=== PATIENT | female | born 1955 | race Caucasian/White ===

== ENCOUNTER → 2016-09-12 | Outpatient (CLI) | payer BC ==
[~2016-09-12] MED LIST: AMOX500C3 PO; ATOR-24 PO; CALC600T9 PO; DICL1GEL12 TOP; HYDR25TA4 PO; NITR1CAP16 PO; NITR1CAP32 PO; OMEP20TA PO; PHEN-775 PO; TURM1CAP4 PO
== END | disposition home or self-care (01) ==
LOC: C.LABSPEC 13:51
PROVIDERS: ATTEND Physician Assistant
DX: Z01.419 Encounter for gynecological examination (general) (routine) without abnormal findings (principal)

== ENCOUNTER → 2016-09-20 | Day surgery (SDC) | payer BC ==
[2016-09-12 14:27] VITALS: Ht 161.3 cm; Wt 69.1 kg
[~2016-09-20] VITALS: Ht 161.3 cm; Wt 69.1 kg
[~2016-09-20] MED LIST changes: +LIDOCAINE HCL 2% 2 ML VIAL (20MG/ML) ONE; +MIDAZOLAM HCL 1 MG/ML 2ML VIAL ONE; +ONDANSETRON INJ 2 MG/ML 2 ML VIAL ONE; +PROPOFOL IV EMULSION 10 MG/ML 20 ML VIAL IV ONE; +SODIUM CHLORIDE 0.9% 500ML 500 ML IV ONE
[2016-09-20 10:17] VITALS: TEMP 36.5
--- NOTE | 2016-09-20 10:38 | Endo History and Physical ---
History & Physical Date of Service: Sep 20, 2016. Chief Complaint: screening Referring Physician: Dr. Jerome Mendes History of Present Illness 60 yo CF who presents for screening colonoscopy. Past Surgical History Hx Cardiac Surgery: No Hx Internal Defibrillator: No Hx Pacemaker: No Hx Abdominal Surgery: No Hx of Implantable Prosthesis: No Hx Post-Op Nausea and Vomiting: No Hx Cancer Surgery: No Hx Thoracic Surgery: No Hx Orthopedic: Yes (LT TSA, RT/LT KNEE SURGERY) Hx Urinary Tract Surgery: No Family History Polyp Social History Smoking Status: Never Smoker Hx Substance Use: No Hx Alcohol Use: Yes (OCCASIONAL) Allergies Coded Allergies: No Known Allergies (Verified , `, 09/12/16) Current Medications Reported Home Medications Medications Dose Route/Sig Max Daily Dose Days Date Category Amoxil (Amoxicillin) 500 Mg Cap 4 Cap PO UD PRN 09/12/16 Reported Voltaren 1% Top Gel (Diclofenac Sodium (Topical)) 1 % Gel 1 Dose TOP BID 09/12/16 Reported Turmeric (Turmeric (Curcuma Longa)) 500 Mg Cap 1 Cap PO HS 09/12/16 Reported Omeprazole 20 Mg Tab 1 Tab PO QPM 09/12/16 Reported Calcium + D (Calcium Carbonate-Vitamin D) 1 Tab Tab 1 Tab PO BID 09/12/16 Reported Hctz (Hydrochlorothiazide) 25 Mg Tab 25 Mg PO QAM 06/17/13 Reported Lipitor (Atorvastatin Calcium) 40 Mg Tab 40 Mg PO QAM 09/10/12 Reported Vital Signs Weight (Kilograms): 69.09 Height (Feet): 5 Height (Inches): 3.5 Date Time Temp Pulse Resp B/P Pulse Ox O2 Delivery O2 Flow Rate FiO2 09/20/16 10:17 36.5 68 18 134/62 97 Room Air Physical Exam General Appearance: WD/WN, no apparent distress Respiratory/Chest: Auscultation: breath sounds normal Cardiovascular: Heart Auscultation: RRR Abdomen: Bowel Sounds: normal Inspection & Palpation: soft, non-distended, no tenderness, guarding & rebound Assessment and Plan Assessment: 60 yo CF who presents for screening colonoscopy. Plan: Proceed with colonoscopy.
--- NOTE | 2016-09-20 11:09 | Discharge Instructions ---
Endoscopy Patient Instructions Date / Procedure(s) Performed Sep 20, 2016. Colonoscopy Allergy Information Coded Allergies: No Known Allergies (Verified , `, 09/12/16) Discharge Date / Findings Sep 20, 2016. Internal hemorrhoids Medication Instructions OK to resume all medications today as prescribed. Reported Home Medications Medications Dose Route/Sig Max Daily Dose Days Date Category Amoxil (Amoxicillin) 500 Mg Cap 4 Cap PO UD PRN 09/12/16 Reported Voltaren 1% Top Gel (Diclofenac Sodium (Topical)) 1 % Gel 1 Dose TOP BID 09/12/16 Reported Turmeric (Turmeric (Curcuma Longa)) 500 Mg Cap 1 Cap PO HS 09/12/16 Reported Omeprazole 20 Mg Tab 1 Tab PO QPM 09/12/16 Reported Calcium + D (Calcium Carbonate-Vitamin D) 1 Tab Tab 1 Tab PO BID 09/12/16 Reported Hctz (Hydrochlorothiazide) 25 Mg Tab 25 Mg PO QAM 06/17/13 Reported Lipitor (Atorvastatin Calcium) 40 Mg Tab 40 Mg PO QAM 09/10/12 Reported Provider Instructions Activity Restrictions - No exercising or heavy lifting for 24 hours. - Do not drink alcohol the day of the procedure. - Do not drive a car or operate machinery until the day after the procedure. - Do not make any important decisions or sign important papers in 24 hours after the procedure. Following Day: - Return to full activity which may include returning to work/school. Diet Start your diet with liquids and light foods (jello, soup, juice, toast). Then eat your usual diet if not nauseated. Treatment For Common After Affects For mild abdominal pain, bloating, or excessive gas: - Rest - Eat lightly - Lie on right side Follow-Up Information Follow-up with Dr. Jerome Mendes as scheduled Anesthesia Information What You Should Know You have had a procedure that required some medicine to reduce anxiety and discomfort. This treatment is called moderate sedation. After receiving the treatment, you may be sleepy, but you will be able to breathe on your own. The effects of the treatment may last for several hours. Follow these instructions along with Activity/Diet recommendations noted above: * Do NOT do anything where dizziness or clumsiness would be dangerous. * Rest quietly at home today, then you can be up and about tomorrow. * Have a responsible person stay with you the rest of today. * You may have had an I.V. today. If so, you may take the dressing off later today. Recommendations Call your doctor if: * Trouble breathing * Continuous vomiting for more than 24 hours * Temperature above 101 degrees * Severe abdominal pain or bloating * Pain not relieved by pain medicine ordered * There is increased drainage or redness from any incision * A large amount of rectal bleeding greater than 2-3 tablespoons. (If you had a polyp/s removed or have hemorrhoids, a small amount of blood - from the rectum is to be expected.) * You have any unanswered questions or concerns. IN THE EVENT OF A SERIOUS EMERGENCY, GO TO THE NEAREST EMERGENCY ROOM Your discharge instructions were prepared by provider Roscoe Bradley. Patient Instructions Signature Page Marlene Null Patient (or Guardian) Signature/Date: I have read and understand the instructions given to me by my caregivers. Caregiver/RN/Doctor Signature/Date: The above-named patient and/or guardian has received patient instructions on this date. + Original Patient Signature Page (only) stays with chart. Please make copy for patient.
--- NOTE | 2016-09-20 11:13 | Anesthesiology Progress Note ---
Anesthesia Post Op Note Date & Time Sep 20, 2016 at 11:12 Vital Signs Pain Intensity: 0 Vital Signs Past 12 Hours Date Time Temp Pulse Resp B/P Pulse Ox O2 Delivery O2 Flow Rate FiO2 09/20/16 11:11 62 18 98/61 100 Room Air 09/20/16 11:00 64 18 93/51 98 Room Air 09/20/16 10:17 36.5 68 18 134/62 97 Room Air Notes Mental Status: alert / awake / arousable, participated in evaluation Pt Amnestic to Procedure: Yes Nausea / Vomiting: adequately controlled Pain: adequately controlled Airway Patency, RR, SpO2: stable & adequate BP & HR: stable & adequate Hydration State: stable & adequate Anesthetic Complications: no major complications apparent Pt doing well.
--- NOTE | 2016-09-20 11:13 | GI REPORT ---
Procedure Date: 09/20/2016 10:19 AM Procedure: Colonoscopy Indications: Screening for colorectal malignant neoplasm Medicines: Monitored Anesthesia Care Complications: No immediate complications. Estimated Blood Loss: Estimated blood loss: none. Procedure: Pre-Anesthesia Assessment: - Prior to the procedure, a History and Physical was performed, and patient medications and allergies were reviewed. The patient's tolerance of previous anesthesia was also reviewed. The risks and benefits of the procedure and the sedation options and risks were discussed with the patient. All questions were answered, and informed consent was obtained. Prior Anticoagulants: The patient has taken no previous anticoagulant or antiplatelet agents. ASA Grade Assessment: II - A patient with mild systemic disease. After reviewing the risks and benefits, the patient was deemed in satisfactory condition to undergo the procedure. After I obtained informed consent, the scope was passed under direct vision. Throughout the procedure, the patient's blood pressure, pulse, and oxygen saturations were monitored continuously. The scope was introduced through the anus and advanced to the cecum, identified by appendiceal orifice and ileocecal valve. The colonoscopy was performed without difficulty. The patient tolerated the procedure well. The quality of the bowel preparation was good. The ileocecal valve, appendiceal orifice, and rectum were photographed. Findings: Non-bleeding internal hemorrhoids were found during retroflexion. The hemorrhoids were small. The exam was otherwise without abnormality. Impression: - Non-bleeding internal hemorrhoids. - The examination was otherwise normal. - No specimens collected. Recommendation: - Resume previous diet. - Continue present medications. - Repeat colonoscopy in 10 years for surveillance. - Return to primary care physician as previously scheduled. Roscoe Bradley, DO 09/20/2016 11:12:46 AM This report has been signed electronically. Note Initiated On: 09/20/2016 10:19 AM I attest to the content of the Intraoperative Record and orders documented therein, exceptions below
[2016-09-20 11:27] VITALS: BP 103/53; PULSE 60; O2SAT 100
== END | disposition home or self-care (01) ==
LOC: C.GI 10:02
PROVIDERS: ATTEND Internal Medicine
DX: Z12.11 Encounter for screening for malignant neoplasm of colon (principal); K64.8 Other hemorrhoids; Z98.890 Other specified postprocedural states

== ENCOUNTER → 2016-09-25 | Outpatient (CLI) | payer BC ==
[~2016-09-25] MED LIST changes: -LIDOCAINE HCL 2% 2 ML VIAL (20MG/ML) ONE; -MIDAZOLAM HCL 1 MG/ML 2ML VIAL ONE; -ONDANSETRON INJ 2 MG/ML 2 ML VIAL ONE; -PROPOFOL IV EMULSION 10 MG/ML 20 ML VIAL IV ONE; -SODIUM CHLORIDE 0.9% 500ML 500 ML IV ONE
--- NOTE | 2016-09-25 13:56 | MAMMOGRAPHY REPORT ---
BILATERAL DIGITAL SCREENING MAMMOGRAM TOMOSYNTHESIS WITH CAD: 09/25/2016 CLINICAL HISTORY: Routine screening. Patient has no complaints. TECHNIQUE: Breast tomosynthesis in addition to standard 2D mammography was performed. Current study was also evaluated with a Computer Aided Detection (CAD) system. COMPARISON: Comparison is made to exams dated: 01/02/2011 mammogram, 12/27/2009 mammogram - [facility], 12/06/2008, 10/13/2006, and 06/13/2003 mammogram - [facility]. BREAST COMPOSITION: There are scattered areas of fibroglandular density in both breasts. FINDINGS: No suspicious masses, calcifications, or areas of architectural distortion are noted in e ither breast. There has been no significant interval change compared to prior exams. IMPRESSION: ACR BI-RADS CATEGORY 1: NEGATIVE There is no mammographic evidence of malignancy. A 1 year screening mammogram is recommended. The p atient will receive written notification of the results. Approximately 10% of breast cancers are not detected with mammography. A negative mammographic repor t should not delay biopsy if a clinically suggestive mass is present. Radha Nathan M.D. ah/:09/25/2016 13:41:09 [employer]r: Flores PACHECO(Mattie)(M), [facility] letter sent: Normal 1/2 BI-RADS Code: ACR BI-RADS Category 1: Negative
== END | disposition home or self-care (01) ==
LOC: C.MAMM 09:08
PROVIDERS: ATTEND Internal Medicine
DX: Z12.31 Encounter for screening mammogram for malignant neoplasm of breast (principal)

== ENCOUNTER → 2016-10-01 | Day surgery (SDC) | payer BC ==
[2016-09-25 13:22] VITALS: Ht 161.3 cm; Wt 69.1 kg
[~2016-10-01] VITALS: Ht 161.3 cm; Wt 69.1 kg
[~2016-10-01] MED LIST changes: +LIDOCAINE HCL 2% 2 ML VIAL (20MG/ML) ONE; +MIDAZOLAM HCL 1 MG/ML 2ML VIAL ONE; +ONDANSETRON INJ 2 MG/ML 2 ML VIAL ONE; +PROPOFOL IV EMULSION 10 MG/ML 20 ML VIAL IV ONE; +SODIUM CHLORIDE 0.9% 500ML 500 ML IV ONE
[2016-10-01 11:07] VITALS: TEMP 36.5
--- NOTE | 2016-10-01 11:32 | Endo History and Physical ---
History & Physical Date of Service: Oct 01, 2016. Chief Complaint: epigastric pain Referring Physician: Dr. Jerome Mendes History of Present Illness 60 yo CF who presents for EGD secondary to epigastric pain. Past Surgical History Hx Cardiac Surgery: No Hx Internal Defibrillator: No Hx Pacemaker: No Hx Abdominal Surgery: No Hx of Implantable Prosthesis: No Hx Post-Op Nausea and Vomiting: No Hx Cancer Surgery: No Hx Thoracic Surgery: No Hx Orthopedic: Yes (LT TSA, RT/LEFT KNEE SX) Hx Urinary Tract Surgery: No Family History Polyp Social History Smoking Status: Never Smoker Hx Substance Use: No Hx Alcohol Use: Yes (OCCASIONALLY) Allergies Coded Allergies: No Known Allergies (Verified , `, 09/25/16) Current Medications Reported Home Medications Medications Dose Route/Sig Max Daily Dose Days Date Category Macrodantin (Nitrofurantoin Macrocrystals) 100 Mg Cap 1 Cap PO BID 10 10/01/16 Reported Amoxil (Amoxicillin) 500 Mg Cap 4 Cap PO UD PRN 09/12/16 Reported Voltaren 1% Top Gel (Diclofenac Sodium (Topical)) 1 % Gel 1 Dose TOP BID 09/12/16 Reported Turmeric (Turmeric (Curcuma Longa)) 500 Mg Cap 1 Cap PO HS 09/12/16 Reported Omeprazole 20 Mg Tab 1 Tab PO QPM 09/12/16 Reported Calcium + D (Calcium Carbonate-Vitamin D) 1 Tab Tab 1 Tab PO BID 09/12/16 Reported Hctz (Hydrochlorothiazide) 25 Mg Tab 25 Mg PO QAM 06/17/13 Reported Lipitor (Atorvastatin Calcium) 40 Mg Tab 40 Mg PO QAM 09/10/12 Reported Vital Signs Weight (Kilograms): 69.09 Height (Feet): 5 Height (Inches): 3.5 Date Time Temp Pulse Resp B/P Pulse Ox O2 Delivery O2 Flow Rate FiO2 10/01/16 11:07 36.5 74 20 128/68 100 Room Air Physical Exam General Appearance: WD/WN, no apparent distress Respiratory/Chest: Auscultation: breath sounds normal Cardiovascular: Heart Auscultation: RRR Abdomen: Bowel Sounds: normal Inspection & Palpation: soft, non-distended, no tenderness, guarding & rebound Assessment and Plan Assessment: 60 yo CF who presents for EGD secondary to epigastric pain. Plan: Proceed with EGD.
--- NOTE | 2016-10-01 12:15 | GI REPORT ---
Procedure Date: 10/01/2016 11:38 AM Procedure: Upper GI endoscopy Indications: Epigastric abdominal pain Medicines: Monitored Anesthesia Care Complications: No immediate complications. Estimated Blood Loss: Estimated blood loss: none. Procedure: Pre-Anesthesia Assessment: - Prior to the procedure, a History and Physical was performed, and patient medications and allergies were reviewed. The patient's tolerance of previous anesthesia was also reviewed. The risks and benefits of the procedure and the sedation options and risks were discussed with the patient. All questions were answered, and informed consent was obtained. Prior Anticoagulants: The patient has taken no previous anticoagulant or antiplatelet agents. ASA Grade Assessment: II - A patient with mild systemic disease. After reviewing the risks and benefits, the patient was deemed in satisfactory condition to undergo the procedure. After obtaining informed consent, the endoscope was passed under direct vision. Throughout the procedure, the patient's blood pressure, pulse, and oxygen saturations were monitored continuously. The scope was introduced through the mouth, and advanced to the second part of duodenum. The upper GI endoscopy was accomplished without difficulty. The patient tolerated the procedure well. Findings: The examined esophagus was normal. Localized mild inflammation characterized by erythema was found in the gastric antrum. Biopsies were taken with a cold forceps for histology. The examined duodenum was normal. Impression: - Normal esophagus. - Gastritis. Biopsied. - Normal examined duodenum. Recommendation: - Resume previous diet. - Continue present medications. - Await pathology results. - Return to GI office as previously scheduled. Roscoe Bradley DO 10/01/2016 12:13:57 PM This report has been signed electronically. Note Initiated On: 10/01/2016 11:38 AM I attest to the content of the Intraoperative Record and orders documented therein, exceptions below
--- NOTE | 2016-10-01 12:18 | Discharge Instructions ---
Endoscopy Patient Instructions Date / Procedure(s) Performed Oct 01, 2016. EGD Allergy Information Coded Allergies: No Known Allergies (Verified , `, 09/25/16) Discharge Date / Findings Oct 01, 2016. Gastritis s/p biopsies Medication Instructions OK to resume all medications today as prescribed Reported Home Medications Medications Dose Route/Sig Max Daily Dose Days Date Category Macrodantin (Nitrofurantoin Macrocrystals) 100 Mg Cap 1 Cap PO BID 10 10/01/16 Reported Amoxil (Amoxicillin) 500 Mg Cap 4 Cap PO UD PRN 09/12/16 Reported Voltaren 1% Top Gel (Diclofenac Sodium (Topical)) 1 % Gel 1 Dose TOP BID 09/12/16 Reported Turmeric (Turmeric (Curcuma Longa)) 500 Mg Cap 1 Cap PO HS 09/12/16 Reported Omeprazole 20 Mg Tab 1 Tab PO BID 09/12/16 Reported Calcium + D (Calcium Carbonate-Vitamin D) 1 Tab Tab 1 Tab PO BID 09/12/16 Reported Hctz (Hydrochlorothiazide) 25 Mg Tab 25 Mg PO QAM 06/17/13 Reported Lipitor (Atorvastatin Calcium) 40 Mg Tab 40 Mg PO QAM 09/10/12 Reported Provider Instructions Activity Restrictions - No exercising or heavy lifting for 24 hours. - Do not drink alcohol the day of the procedure. - Do not drive a car or operate machinery until the day after the procedure. - Do not make any important decisions or sign important papers in 24 hours after the procedure. Following Day: - Return to full activity which may include returning to work/school. Diet Start your diet with liquids and light foods (jello, soup, juice, toast). Then eat your usual diet if not nauseated. Treatment For Common After Affects For mild abdominal pain, bloating, or excessive gas: - Rest - Eat lightly - Lie on right side Follow-Up Information Follow-up with Dr. Jerome Mendes as scheduled Anesthesia Information What You Should Know You have had a procedure that required some medicine to reduce anxiety and discomfort. This treatment is called moderate sedation. After receiving the treatment, you may be sleepy, but you will be able to breathe on your own. The effects of the treatment may last for several hours. Follow these instructions along with Activity/Diet recommendations noted above: * Do NOT do anything where dizziness or clumsiness would be dangerous. * Rest quietly at home today, then you can be up and about tomorrow. * Have a responsible person stay with you the rest of today. * You may have had an I.V. today. If so, you may take the dressing off later today. Recommendations Call your doctor if: * Trouble breathing * Continuous vomiting for more than 24 hours * Temperature above 101 degrees * Severe abdominal pain or bloating * Pain not relieved by pain medicine ordered * There is increased drainage or redness from any incision * A large amount of rectal bleeding greater than 2-3 tablespoons. (If you had a polyp/s removed or have hemorrhoids, a small amount of blood - from the rectum is to be expected.) * You have any unanswered questions or concerns. IN THE EVENT OF A SERIOUS EMERGENCY, GO TO THE NEAREST EMERGENCY ROOM Your discharge instructions were prepared by provider Roscoe Bradley. Patient Instructions Signature Page Marlene Null Patient (or Guardian) Signature/Date: I have read and understand the instructions given to me by my caregivers. Caregiver/RN/Doctor Signature/Date: The above-named patient and/or guardian has received patient instructions on this date. + Original Patient Signature Page (only) stays with chart. Please make copy for patient.
--- NOTE | 2016-10-01 12:27 | Anesthesiology Progress Note ---
Anesthesia Post Op Note Date & Time Oct 01, 2016 at 12:26 Vital Signs Pain Intensity: 0 Vital Signs Past 12 Hours Date Time Temp Pulse Resp B/P Pulse Ox O2 Delivery O2 Flow Rate FiO2 10/01/16 12:14 70 16 101/61 96 Room Air 10/01/16 11:07 36.5 74 20 128/68 100 Room Air Notes Mental Status: alert / awake / arousable, participated in evaluation Pt Amnestic to Procedure: Yes Nausea / Vomiting: adequately controlled Pain: adequately controlled Airway Patency, RR, SpO2: stable & adequate BP & HR: stable & adequate Hydration State: stable & adequate Anesthetic Complications: no major complications apparent Pt doing well.
[2016-10-01 12:44] VITALS: BP 106/63; PULSE 61; O2SAT 97
== END | disposition home or self-care (01) ==
LOC: C.GI 10:52
PROVIDERS: ATTEND Internal Medicine
DX: R10.13 Epigastric pain (principal); K29.60 Other gastritis without bleeding

== ENCOUNTER 2017-01-08 02:21 | Emergency (ER) | payer BC ==
[~2017-01-08] VITALS: Ht 162.6 cm; Wt 68.6 kg
[~2017-01-08 02:21] MED LIST changes: -LIDOCAINE HCL 2% 2 ML VIAL (20MG/ML) ONE; -MIDAZOLAM HCL 1 MG/ML 2ML VIAL ONE; -NITR1CAP16 PO; -ONDANSETRON INJ 2 MG/ML 2 ML VIAL ONE; -PHEN-775 PO; -PROPOFOL IV EMULSION 10 MG/ML 20 ML VIAL IV ONE; -SODIUM CHLORIDE 0.9% 500ML 500 ML IV ONE
[2017-01-08 02:23] VITALS: Ht 162.6 cm; Wt 68.6 kg
--- NOTE | 2017-01-08 03:00 | EMERGENCY ROOM VISIT NOTE ---
History Report prepared by Delbert: Caitlin Pineda Under the Supervision of: Dr. Alexus Sanchez D.O. First contact with patient: 02:36 Chief Complaint: URINARY SYMPTOMS Stated Complaint: UTI History of Present Illness The patient is a 61 year old female who presents to the Emergency Room with complaints of an episode of urinary symptoms starting 5 hours ago. The patient states that she has a history of frequent UTIs and this feels similar to previous ones. The patient states that she developed the frequent urination with spasms when she urinates. The patient denies fevers, chills, nausea, vomiting, diarrhea, and abdominal pain. She notes that she is allergic to Bactrim. The patient currently rates her pain as a 5/10 in severity. Source of History: patient Onset: five hours ago Position: other (global) Symptom Intensity: 5/10 Quality: other (like previous UTIs) Timing: other (episode) Associated Symptoms: + urinary symptoms, No fevers, No chills, No nausea, No vomiting, No abdominal pain, No diarrhea Review of Systems See HPI for pertinent positives & negatives. A total of 10 systems reviewed and were otherwise negative. Past Medical & Surgical Medical Problems: (1) DJD of shoulder (2) History of left shoulder replacement (3) Hypertension Nos (4) Pure Hypercholesterolem Family History Gallbladder disease Lung disease Social History Smoking Status: Never Smoker Smokeless Tobacco Use: No Alcohol Use: occasionally Marital Status: Housing Status: lives with significant other Occupation Status: employed Current/Historical Medications Scheduled Atorvastatin (Lipitor), 40 MG PO QAM Calcium Carbonate-Vitamin D (Calcium + D), 1 TAB PO BID Hydrochlorothiazide (Hctz), 25 MG PO QAM Nitrofurantoin Monohyd Macro (Macrobid), 100 MG PO BID Omeprazole (Omeprazole), 1 TAB PO BID Phenazopyridine Hcl (Pyridium), 1 TAB PO TID Turmeric (Curcuma [place]a) (Turmeric), 1 CAP PO HS Scheduled PRN Amoxicillin (Amoxil), 4 CAP PO UD PRN for DENTAL PROCEDURE Allergies Coded Allergies: Sulfamethoxazole w/Trimethoprim (Verified Allergy, Unknown, NUMBNESS, ) Physical Exam Vital Signs Date Time Temp Pulse Resp B/P (MAP) Pulse Ox O2 Delivery O2 Flow Rate FiO2 01/08/17 04:21 36.4 65 18 134/74 98 8/2/17 03:57 65 18 134/74 98 Room Air 01/08/17 02:23 36.4 63 18 168/74 100 Room Air Physical Exam HEENT: Head - normocephalic and atraumatic Pupils are equal, round, and reactive to light. Extraocular eye muscles are intact, and sclera are anicteric. Nose - moist nasal mucosa without discharge. Mouth - moist buccal mucosa. Oropharynx is nonerythematous and there is no tonsillar exudate or edema noted. Neck: Supple; no JVD, nuchal rigidity, cervical lymphadenopathy. Heart: Regular rate and rhythm. There is a normal S1 and S2 with no murmurs, clicks, or gallops appreciated. Lungs: Clear to auscultation bilaterally with no wheezes, rales, or rhonchi. Abdomen: Soft, completely nontender, nondistended, with good bowel sounds. There are no palpable pulsatile masses or hepatosplenomegaly. There is no guarding, rigidity, or rebound noted. Extremities: No evidence of cyanosis, clubbing, or edema. There are easily palpable peripheral pulses. Skin: warm and dry with good turgor and no rashes. Medical Decision & Procedures Laboratory Results Test 01/08/17 00:00 Urine Color YELLOW Urine Appearance CLOUDY (CLEAR) Urine pH 7.0 (4.5-7.5) Urine Specific [place] 1.012 (1.000-1.030) Urine Protein TRACE (NEG) Urine Glucose (UA) NEG (NEG) Urine Ketones NEG (NEG) Urine Occult Blood 3+ (NEG) Urine Nitrite NEG (NEG) Urine Bilirubin NEG (NEG) Urine Urobilinogen NEG (NEG) Urine Leukocyte Esterase LARGE (NEG) Urine WBC (Auto) >30 /hpf (0-5) Urine RBC (Auto) 10-30 /hpf (0-4) Urine Hyaline Casts (Auto) 1-5 /lpf (0-5) Urine Epithelial Cells (Auto) 5-10 /lpf (0-5) Urine Bacteria (Auto) NEG (NEG) Laboratory results per my review. Medications Administered Medications (Trade) Dose Ordered Sig/Madhu Route Start Time Stop Time Status Last Admin Dose Admin Phenazopyridine HCl (Pyridium Tab) 200 mg NOW STAT PO 01/08/17 03:14 01/08/17 03:15 DC 01/08/17 03:20 200 MG Nitrofurantoin Macrocrystals (Macrobid Cap) 100 mg ONE ONCE PO 01/08/17 04:15 01/08/17 04:16 DC 01/08/17 04:14 100 MG Procedure 0314: Ordered Pyridium Tab 200 mg PO. 0415: Ordered Macrobid Cap 100 mg PO. ED Course 0246: Past medical records reviewed. The patient was evaluated in room B10. A complete history and physical exam was performed. Urine specimen was obtained. 0314: Ordered Pyridium Tab 200 mg PO. 0415: Ordered Macrobid Cap 100 mg PO. 0416: Upon reevaluation, resting comfortably. I discussed findings and results with her. She verbalized agreement of the treatment plan. The patient was discharged home. Medical Decision This is a 61-year-old female who presents emergency Department with urinary symptoms. Differential diagnoses include cystitis, pyelonephritis, hematuria. LABS: Trace protein. 3+ blood. Large leukocyte esterase. Greater than 30 white blood cells. 10-30 red blood cells. Negative bacteria. Sent for a culture. She has a history of urinary tract infection in the past. Her last UTI was susceptible to Macrobid. I prescribed this again. Impression Primary Impression: UTI (urinary tract infection) Scribe Attestation The scribe's documentation has been prepared under my direction and personally reviewed by me in its entirety. I confirm that the note above accurately reflects all work, treatment, procedures, and medical decision making performed by me. Departure Information Dispostion Home / Self-Care Prescriptions Phenazopyridine Hcl (PYRIDIUM) 200 Mg Tab 1 TAB PO TID for 2 Days, #6 TAB Prov: Alexus Sanchez D.O. 01/08/17 Nitrofurantoin Monohyd Macro (MACROBID) 100 Mg Cap 100 MG PO BID, #20 CAP Prov: Alexus Sanchez D.OSpencer 01/08/17 Referrals Jerome Mendes M.D. (PCP) Forms HOME CARE DOCUMENTATION FORM, IMPORTANT VISIT INFORMATION Patient Instructions My [facility] Additional Instructions Rest. take plenty of clear liquids Pyridium - every 8 hours Macrobid - every 12 hours Problem Qualifiers Primary Impression: UTI (urinary tract infection) Urinary tract infection type: acute cystitis Hematuria presence: with hematuria Qualified Codes: N30.01 - Acute cystitis with hematuria
[2017-01-08] MEDS ORDERED: PHENAZOPYRIDINE HCL 200 MG TAB PO STA (03:14)
[2017-01-08 03:31] LABS: MANUAL MICROSCOPIC REQUIRED? NO; REVIEW REQ? NO; URINE APPEARANCE CLOUDY (CLEAR); URINE BILIRUBIN NEG (NEG); URINE COLOR YELLOW; URINE NITRITE NEG (NEG); URINE SPECIFIC GRAVITY 1.012 (1.000-1.030); UROBILINOGEN NEG (NEG)
[2017-01-08] MEDS ORDERED: NITR1CAP16 PO (04:13)
[2017-01-08] MEDS ORDERED: PHEN-775 PO (04:13)
[2017-01-08] MEDS ORDERED: NITROFURANTOIN MONOHYDRATE 100 MG CAP PO ONE (04:15)
[2017-01-08 04:21] VITALS: BP 134/74; PULSE 65; TEMP 36.4; O2SAT 98
== END 2017-01-08 04:21 | disposition home or self-care (01) ==
LOC: C.EDB 02:22
DX: N39.0 Urinary tract infection, site not specified (principal); I10 Essential (primary) hypertension; E78.00 Pure hypercholesterolemia, unspecified; Z96.612 Presence of left artificial shoulder joint; Z79.899 Other long term (current) drug therapy; Z88.2 Allergy status to sulfonamides; Z83.79 Family history of other diseases of the digestive system

== ENCOUNTER → 2017-05-13 | Outpatient (CLI) | payer BC ==
[~2017-05-13] MED LIST changes: -DICL1GEL12 TOP; -NITR1CAP32 PO
--- NOTE | 2017-05-13 10:13 | DIAGNOSTIC IMAGING REPORT ---
MRCP HISTORY: 61 years-old Female K82.4 Gallbladder [id number] Pancreatic cystR93.2 Abnormal ultra follow-up study in a patient with probable pancreatic IPMN. COMPARISON: MRCP 03/20/2016, gallbladder ultrasound 02/14/2016 TECHNIQUE: MRCP was obtained with MIP reformats according to institutional protocol. FINDINGS: The large [id number] flight engineer images demonstrate no gross abnormality of the imaged chest, abdomen or pelvis. Gallbladder is unremarkable without focal filling defects, polyps or gallstones. No intrahepatic biliary ductal dilation. The common bile duct appears normal measuring 4 mm in diameter. No choledocholithiasis. No evidence of pancreatic divisum. 8 x 5 mm cystic structure within the pancreatic neck is again seen which appears contiguous with the main pancreatic duct nicely seen on image 1 series 700 suggesting a sidebranch intraductal papillary mucinous neoplasm. This is stable from comparison study 03/20/2016. IMPRESSION: 1. Unremarkable appearance of the gallbladder without focal filling defects, cholelithiasis or choledocholithiasis. 2. No ductal dilation identified. 3. Unchanged 8 x 5 mm cystic structure of the pancreatic neck suggesting a sidebranch IPMN. The above report was generated using voice recognition software. It may contain grammatical, syntax or spelling errors. Electronically signed by: Sloan Rea M.D. 05/13/2017 10:12 AM Dictated Date/Time: 05/13/2017 10:04 AM
== END | disposition home or self-care (01) ==
LOC: C.MRI 08:35
PROVIDERS: ATTEND Internal Medicine
DX: R93.2 Abnormal findings on diagnostic imaging of liver and biliary tract (principal); R74.0 Nonspecific elevation of levels of transaminase and lactic acid dehydrogenase [LDH]; R10.13 Epigastric pain; K82.4 Cholesterolosis of gallbladder; K86.2 Cyst of pancreas

== ENCOUNTER → 2017-09-29 | Outpatient (CLI) | payer OTHER ==
--- NOTE | 2017-09-30 07:40 | MAMMOGRAPHY REPORT ---
BILATERAL DIGITAL SCREENING MAMMOGRAM TOMOSYNTHESIS WITH CAD: 09/29/2017 CLINICAL HISTORY: Routine screening. TECHNIQUE: Breast tomosynthesis in addition to standard 2D mammography was performed. Current study was also evaluated with a Computer Aided Detection (CAD) system. COMPARISON: Comparison is made to exams dated: 09/25/2016 mammogram, 01/02/2011 mammogram, 12/27/2009 m ammogram - [facility], 12/06/2008, 10/13/2006, and 01/09/2011 mammogram - [facility]. BREAST COMPOSITION: There are scattered areas of fibroglandular density in both breasts. FINDINGS: The parenchymal pattern is unchanged. No developing mass, architectural distortion or clus ter of suspicious microcalcifications is seen in either breast. IMPRESSION: ACR BI-RADS CATEGORY 2: BENIGN There is no mammographic evidence of malignancy. A 1 year screening mammogram is recommended. The pa tient will receive written notification of the results. Approximately 10% of breast cancers are not detected with mammography. A negative mammographic report should not delay biopsy if a clinically suggestive mass is present. Kayla Pennington M.D. ay/:09/29/2017 12:09:56 Sustainable Design Consultant: Patricia PACHECO(R)(M), [facility] letter sent: Normal 1/2 BI-RADS Code: ACR BI-RADS Category 2: Benign
== END | disposition home or self-care (01) ==
LOC: C.MAMM 08:35
PROVIDERS: ATTEND Internal Medicine
DX: Z12.31 Encounter for screening mammogram for malignant neoplasm of breast (principal)